=== PATIENT | female | born 1965 | race Two or more races ===

== ENCOUNTER 2017-11-18 04:54 | Emergency (ER) | payer BC, MEDICAID ==
[~2017-11-18] VITALS: Ht 152.4 cm; Wt 61.3 kg
[~2017-11-18 04:54] MED LIST: ALPRAZOLAM; LEVO25TA2 PO
[2017-11-18 04:58] VITALS: BP 119/76
[2017-11-18] MEDS ORDERED: PROPARACAINE OPHTH 0.5%, 15ML ONE (05:39)
[2017-11-18] MEDS ORDERED: FLUORESCEIN OPHTHALMIC 1 MG STRIP ONE (05:39)
== END 2017-11-18 06:20 | disposition home or self-care (01) ==
LOC: ED 06:05
DX: H11.32 Conjunctival hemorrhage, left eye (principal); H57.12 Ocular pain, left eye; Z87.891 Personal history of nicotine dependence
CPT/HCPCS: 99283